=== PATIENT | female | born 1965 | race Hispanic/Latino ===

== ENCOUNTER → 2017-10-08 | Day surgery (SDC) | payer BC ==
[2017-10-07 13:07] LABS: BASOPHILS % 0.5 % (0.0-1.0); EOSINOPHILS # (AUTO) 0.3 (0.0-0.4); EOSINOPHILS % 4.3 % (0.0-6.0); HEMOGLOBIN 11.4 g/dL (12.0-16.0); LYMPHOCYTES # (AUTO) 1.2 (1.0-3.2); LYMPHOCYTES % 19.9 % (18.0-39.1); MEAN CORPUSCULAR HEMOGLOBIN 33.3 pg (28-32); MEAN CORPUSCULAR HGB CONC 33.5 g/dL (31-35); MEAN CORPUSCULAR VOLUME 99.4 fL (81-99); MONOCYTES # (AUTO) 0.5 (0.2-0.8); MONOCYTES % 8.7 % (4.4-11.3); NEUTROPHILS # (AUTO) 4.1 (2.1-6.9); NEUTROPHILS % 66.4 % (38.7-80.0); PLATELET COUNT 198 x10e3/uL (140-360); RED BLOOD COUNT 3.42 x10e6/uL (3.6-5.1); RED CELL DISTRIBUTION WIDTH 13.4 % (11.7-14.4)
[2017-10-07 13:21] LABS: ANION GAP 12.8 mmol/L (8-16); CALCIUM 9.3 mg/dL (8.4-10.2); CREATININE, SERUM 1.11 mg/dL (0.57-1.11); POTASSIUM 3.8 mmol/L (3.5-5.1)
[~2017-10-08] MED LIST: ALENDRONATE SOD70 MG PO; BACLOFEN10 MG PO; BACTRIM DS TAB1 EACH PO; BELVIQ PO; BUPIVACAINE 0.25%/EPI 30ML SDV INJ ONE; DEXAMETHASONE SOD PHOS INJ 4 MG/ML VIAL ONE; FENTANYL CITRATE/PF 100MCG/2 ML INJ ONE; FOLIC ACID1 MG PO; HYDROCODONE/APAP 10MG-325MG TAB ONE; HYDROGEN PEROXIDE 120 ML BTL ONE; LASIX20 MG PO; LIDOCAINE HCL 1% LOCAL INJ 20 ML VIAL ONE; LIDOCAINE HCL 2% LOCAL INJ 5 ML SDV VIAL INJ ONE; METHOTREXATE2.5 MG PO; MIDAZOLAM HCL 2 MG/2 ML VIAL ONE; NORCO 10-325 T1 EACH PO; ONDANSETRON HCL INJ 2 MG/ML VIAL ONE; POTASSIUM CHLO20 ME1 PO; PROPOFOL IV EMULSION 10 MG/ML 20 ML VIAL ONE; REMICADE100 MG/VIA IV; SEVOFLURANE INHAL SOLN 250 ML PEN BTL ONE; ULTRAM50 MG PO; Z.0.FLURAZEPAM HCL30 PO; Z.0.VICODIN 5-5001 E PO; ZALEPLON10 MG PO; ZOHYDRO PO
--- NOTE | 2017-10-08 13:21 | Operative Report ---
DATE OF PROCEDURE: October 08, 2017 PREOPERATIVE DIAGNOSIS: Recurrent abscess the right ear secondary to infected epidermal inclusion cyst. POSTOPERATIVE DIAGNOSIS: Recurrent abscess the right ear secondary to infected epidermal inclusion cyst. PROCEDURE PERFORMED: Incision and drainage of abscess secondary to infected cyst of the right ear with debridement of lining necrotic tissue. ANESTHESIA: General. ESTIMATED BLOOD LOSS: Minimal. DRAINS: None. COMPLICATIONS: None. INDICATIONS AND FINDINGS: This patient is a 52-year-old female with a history of recurrent infections of the right ear secondary to an infected cyst. INTRAOPERATIVE FINDINGS: The patient had an infected epidermal inclusion cyst that was beginning to drain through necrotic tissue over the skin of the helix and the upper anterior part of it near the scalp. All gross lining was removed and necrotic and granulation tissue debrided. DESCRIPTION OF PROCEDURE: With the patient lying on the operative table in the supine position after administration of general anesthesia, she was prepped and draped for incision and drainage and abscess of the right ear helix. The abscess was already beginning to drain. Some of the necrotic skin was excised sharply, the cavity entered. The necrotic tissue, lining and granulation tissue was bluntly excised as well as cauterized. The wound irrigated and then packed with Betadine gauze. Sterile dressing was applied. Patient tolerated the procedure well and was taken to recovery room in stable condition. The patient also was informed of intraoperative findings. If she wishes removal later on, we will consider plastic surgery referral. Job#: [id number]
== END | disposition home or self-care (01) ==
LOC: OR 08:10
PROVIDERS: ATTEND Surgery
DX: H60.01 Abscess of right external ear (principal); L72.0 Epidermal cyst; M19.90 Unspecified osteoarthritis, unspecified site; K58.9 Irritable bowel syndrome, unspecified; Z88.0 Allergy status to penicillin; Z01.810 Encounter for preprocedural cardiovascular examination; Z01.812 Encounter for preprocedural laboratory examination; Z68.32 Body mass index [BMI] 32.0-32.9, adult
CPT/HCPCS: 36415; 69000; 80048; 85025; 87071; 87075; 87205; 93005; J1100; J2001; J2250; J2405

== ENCOUNTER → 2021-06-05 | Day surgery (SDC) | payer BC ==
[2021-06-03 15:43] LABS: BASOPHILS % 0.3 % (0.0-1.0); EOSINOPHILS # (AUTO) 0.1 (0.0-0.4); EOSINOPHILS % 1.1 % (0.0-6.0); HEMATOCRIT 34.5 % (34.2-44.1); HEMOGLOBIN 10.7 g/dL (12.0-16.0); LYMPHOCYTES # (AUTO) 1.6 (1.0-3.2); LYMPHOCYTES % 25.6 % (18.0-39.1); MEAN CORPUSCULAR HEMOGLOBIN 29.8 pg (28-32); MEAN CORPUSCULAR VOLUME 96.1 fL (81-99); MONOCYTES # (AUTO) 0.4 (0.2-0.8); MONOCYTES % 5.9 % (4.4-11.3); NEUTROPHILS # (AUTO) 4.1 (2.1-6.9); NEUTROPHILS % 66.4 % (38.7-80.0); PLATELET COUNT 179 x10e3/uL (140-360); RED BLOOD COUNT 3.59 x10e6/uL (3.6-5.1); RED CELL DISTRIBUTION WIDTH 15.6 % (11.7-14.4)
[2021-06-03 16:08] LABS: ALBUMIN 3.7 g/dL (3.5-5.0); ALBUMIN/GLOBULIN RATIO 1.1 (0.8-2.0); ANION GAP 14.1 mmol/L (8-16); CALCIUM 8.5 mg/dL (8.4-10.2); CREATININE, SERUM 1.04 mg/dL (0.57-1.11); POTASSIUM 5.1 mmol/L (3.5-5.1)
[~2021-06-05] MED LIST changes: +ATROPINE SULFATE 1 MG/ML VIAL ONE; +B 12; -BUPIVACAINE 0.25%/EPI 30ML SDV INJ ONE; +BUPIVACAINE HCL 0.5% INJ 30 ML VIAL INJ ONE; +DEXAMETHASONE SOD PHOS INJ 4 MG/ML SDV ONE; -DEXAMETHASONE SOD PHOS INJ 4 MG/ML VIAL ONE; +FLUCONAZOLE100 MG PO; -HYDROCODONE/APAP 10MG-325MG TAB ONE; -HYDROGEN PEROXIDE 120 ML BTL ONE; +HYDROMORPHONE 2MG/ML 2 MG/ML ML ONE; +KETOROLAC TROMETHAMINE 30 MG/ML VIAL ONE; +LEVOFLOXACIN 500MG/D5W 100ML 100 ML IV ONE; -LIDOCAINE HCL 1% LOCAL INJ 20 ML VIAL ONE; +LINZESS145 MCG; +Morphine 10mg syringe 10 MG/ML INJ ONE; +NEOSTIGMINE 1 MG/ML 10ML VIAL ONE; +OMEPRAZOLE40 MG PO; -ONDANSETRON HCL INJ 2 MG/ML VIAL ONE; +ONDANSETRON HCL INJ 2MG/ML 2ML 2 MG/ML VIAL ONE; +POVIDONE IODINE 0.05% 0.05 % ML PO ONE; +ROCURONIUM BROMIDE 10 MG/ML 5ML VIAL IV ONE; +ULTRACET TABLE1 EACH PO
[2021-06-05 08:55] VITALS: BP 101/79
== END | disposition home or self-care (01) ==
LOC: OR 06:09
PROVIDERS: ATTEND Surgery
DX: K81.1 Chronic cholecystitis (principal); K82.8 Other specified diseases of gallbladder; M06.9 Rheumatoid arthritis, unspecified; G89.29 Other chronic pain; Z88.0 Allergy status to penicillin; Z79.899 Other long term (current) drug therapy
CPT/HCPCS: 36415; 47562; 80053; 85025; 88304; 93005; J0461; J1100; J1170; J1885; J1956; J2001; J2250; J2270; J2405; J2704; J2710; J3010; U0002

== ENCOUNTER 2022-07-02 22:45 | Emergency (ER) | payer BC ==
[~2022-07-02] VITALS: Ht 162.6 cm; Wt 92.5 kg
[~2022-07-02 22:45] MED LIST changes: -ATROPINE SULFATE 1 MG/ML VIAL ONE; -BUPIVACAINE HCL 0.5% INJ 30 ML VIAL INJ ONE; -DEXAMETHASONE SOD PHOS INJ 4 MG/ML SDV ONE; -FENTANYL CITRATE/PF 100MCG/2 ML INJ ONE; -HYDROMORPHONE 2MG/ML 2 MG/ML ML ONE; -KETOROLAC TROMETHAMINE 30 MG/ML VIAL ONE; -LEVOFLOXACIN 500MG/D5W 100ML 100 ML IV ONE; -LIDOCAINE HCL 2% LOCAL INJ 5 ML SDV VIAL INJ ONE; -MIDAZOLAM HCL 2 MG/2 ML VIAL ONE; -Morphine 10mg syringe 10 MG/ML INJ ONE; -NEOSTIGMINE 1 MG/ML 10ML VIAL ONE; -ONDANSETRON HCL INJ 2MG/ML 2ML 2 MG/ML VIAL ONE; -POVIDONE IODINE 0.05% 0.05 % ML PO ONE; -PROPOFOL IV EMULSION 10 MG/ML 20 ML VIAL ONE; -ROCURONIUM BROMIDE 10 MG/ML 5ML VIAL IV ONE; -SEVOFLURANE INHAL SOLN 250 ML PEN BTL ONE
[2022-07-02] MEDS ORDERED: ASPIRIN 325 MG TAB PO ONE (23:45)
[2022-07-03] MEDS ORDERED: ASPIRIN 325 MG TAB ONE (00:42)
[2022-07-03] MEDS ORDERED: DONNATAL/LIDOCAINE/MAALOX 30 ML SUSP PO ONE (01:15)
[2022-07-03] MEDS ORDERED: BELLADONNA ALK/PHENOBARBITAL 5 ML UDC ONE ×2 (01:27→01:28)
[2022-07-03] MEDS ORDERED: MAGNESIUM/ALUMINUM/SIMETHICONE 30 ML UDC ONE ×2 (01:27→01:29)
[2022-07-03] MEDS ORDERED: LIDOCAINE VISC 2% SOLN 15 ML UDC ONE (01:29)
[2022-07-03 01:30] VITALS: BP 168/93
[2022-07-03] MEDS ORDERED: BENZONATATE100 MG PO (01:31)
[2022-07-03] MEDS ORDERED: PREDNISONE50 MG PO (16:25)
[2022-07-03] MEDS ORDERED: FLECTOR1 EACH TD (16:31)
== END 2022-07-03 01:30 | disposition home or self-care (01) ==
LOC: FSED 23:38
DX: R07.89 Other chest pain (principal); K21.9 Gastro-esophageal reflux disease without esophagitis; J06.9 Acute upper respiratory infection, unspecified; M54.9 Dorsalgia, unspecified; G89.29 Other chronic pain; R94.31 Abnormal electrocardiogram [ECG] [EKG]; Z98.84 Bariatric surgery status
CPT/HCPCS: 71046; 87400; 93005; 99283

== ENCOUNTER 2022-07-03 15:13 | Emergency (ER) | payer BC ==
[~2022-07-03] VITALS: Ht 162.6 cm; Wt 92.5 kg
[~2022-07-03 15:13] MED LIST changes: +BENZONATATE100 MG PO
[2022-07-03] MEDS ORDERED: KETOROLAC TROMETHAMINE 30 MG/ML VIAL IV STA (16:07)
[2022-07-03] MEDS ORDERED: PREDNISONE50 MG PO (16:25)
[2022-07-03] MEDS ORDERED: KETOROLAC TROMETHAMINE 30 MG/ML VIAL ONE (16:26)
[2022-07-03] MEDS ORDERED: FLECTOR1 EACH TD (16:31)
== END 2022-07-03 16:53 | disposition home or self-care (01) ==
LOC: FSED 15:28
DX: M54.50 Low back pain, unspecified (principal); M06.9 Rheumatoid arthritis, unspecified; K21.9 Gastro-esophageal reflux disease without esophagitis; Z98.84 Bariatric surgery status
CPT/HCPCS: 81003; 99282; J1885